=== PATIENT | male | born 1940 | race Caucasian/White ===

== ENCOUNTER 2017-06-02 02:12 | Outpatient (CLI) | payer MEDICARE, BC | END 2017-06-02 02:13 | disposition short-term general hospital (02) | LOC: EMS 02:12 | PROVIDERS: ATTEND Surgery | DX: R06.02 Shortness of breath (principal); R41.0 Disorientation, unspecified; R53.1 Weakness | CPT/HCPCS: A0425; A0427 ==

== ENCOUNTER 2019-04-10 14:40 | Outpatient (CLI) | payer MEDICARE, BC | END 2019-04-11 14:41 | disposition short-term general hospital (02) | LOC: EMS 14:40 | PROVIDERS: ATTEND Surgery | DX: R10.9 Unspecified abdominal pain (principal) | CPT/HCPCS: A0425; A0429 ==